=== PATIENT | female | born 1960 | race African-American/Black ===

== ENCOUNTER 2020-12-24 09:44 | Emergency (ER) | payer BC, OTHER ==
[~2020-12-24] VITALS: Ht 157.5 cm; Wt 73.0 kg
[2020-12-24 10:06] VITALS: BP 125/73
== END 2020-12-24 11:23 | disposition home or self-care (01) ==
LOC: ER 10:04
DX: Z48.03 Encounter for change or removal of drains (principal); Z98.890 Other specified postprocedural states
CPT/HCPCS: 99281

== ENCOUNTER 2021-01-28 16:43 | Emergency (ER) | payer OTHER, BC ==
[~2021-01-28] VITALS: Ht 165.1 cm; Wt 75.0 kg
[2021-01-28] MEDS ORDERED: LIDOCAINE HCL 1% 20ML VIAL (Pyxis) INJ INFIL ONE (19:00)
[2021-01-28] MEDS ORDERED: CEPH500T MT (19:08)
[2021-01-28 19:20] VITALS: BP 124/80
== END 2021-01-28 19:23 | disposition home or self-care (01) ==
LOC: ER 16:43
DX: Z48.03 Encounter for change or removal of drains (principal); Z98.84 Bariatric surgery status; Z98.890 Other specified postprocedural states; Z79.899 Other long term (current) drug therapy
CPT/HCPCS: 99282; J3490

== ENCOUNTER 2022-02-23 06:38 | Emergency (ER) | payer BC, OTHER ==
[~2022-02-23] VITALS: Ht 157.5 cm; Wt 64.0 kg
[~2022-02-23 06:38] MED LIST: CEPH500T MT
[2022-02-23 07:00] VITALS: BP 120/81
[2022-02-23] MEDS ORDERED: AZIT250T12 MT (08:38)
== END 2022-02-23 08:59 | disposition home or self-care (01) ==
LOC: ER 06:38
DX: J32.9 Chronic sinusitis, unspecified (principal); Z20.822 Contact with and (suspected) exposure to COVID-19; Z98.890 Other specified postprocedural states
CPT/HCPCS: 71045; 87426; 99284; C9803